=== PATIENT | female | born 1980 | race Caucasian/White ===

== ENCOUNTER 2019-03-15 05:35 | Emergency (ER) | payer OTHER ==
[~2019-03-15] VITALS: Ht 162.6 cm; Wt 68.0 kg
[~2019-03-15 05:35] MED LIST: LOESTRIN 24 FE1 EACH PO; NAPROSYN500 MG PO; NOHOMEMEDICATIONS; NORCO 5-325 TA1 EACH PO; ORTHO-CYCLEN1 EACH PO; PERCOCET 5-3251 EACH PO; VALIUM2 MG PO
[2019-03-15 06:18] LABS: ABSOLUTE NEUTROPHILS 4.9 thou/uL (1.4-8.2); BASOPHILS 0.7 % (0.0-2.0); EOSINOPHILS 1.4 % (0.0-3.0); HEMATOCRIT 40.9 % (37.0-47.0); HEMOGLOBIN 13.6 gm/dL (12.0-15.0); MCH 31.7 pg (26.0-34.0); MCHC 33.2 g/dL (28.0-37.0); MCV 95.6 fL (80.0-100.0); MONOCYTES 5.2 % (1.0-8.0); PLATELET COUNT 298 thou/uL (150-400); POLYS 75.7 % (36.0-66.0); RBC 4.28 mil/uL (4.20-5.00); RDW 14.2 % (10.5-14.5); WBC 6.4 thou/uL (4.0-11.0)
[2019-03-15 06:36] LABS: CALCIUM 9.5 mg/dL (8.5-10.1); CREATININE 0.9 mg/dL (0.6-1.0); POTASSIUM 3.2 mmol/L (3.5-5.1)
[2019-03-15 06:39] LABS: ALBUMIN 4.3 g/dL (3.4-5.0); TOTAL BILIRUBIN 0.5 mg/dL (<0.1-1.0); TOTAL PROTEIN 7.7 g/dL (6.4-8.2)
[2019-03-15] MEDS ORDERED: ONDANSETRON ODT8 MG PO (07:20)
[2019-03-15] MEDS ORDERED: PROMS25 WY RECTAL (07:20)
[2019-03-15] MEDS ORDERED: NORCO 5-325 TA1 EAC1 PO (08:10)
[2019-03-15] MEDS ORDERED: NORFLEX100 MG PO (08:10)
[2019-03-15 08:29] LABS: URINE BILIRUBIN NEGATIVE (Negative); URINE BLOOD 1+ (Negative); URINE CLARITY CLEAR; URINE COLOR YELLOW; URINE GLUCOSE-RANDOM* NEGATIVE (Negative); URINE KETONES 3+ (Negative); URINE NITRITE-REFLEX NEGATIVE (Negative); URINE PROTEIN (DIPSTICK) NEGATIVE (Negative); URINE SPECIFIC GRAVITY 1.015 (1.005-1.035); URINE UROBILINOGEN 0.2 E.U./dl (0.2-1.0)
[2019-03-15 08:32] LABS: URINE LEUKOCYTES-REFLEX 1+ (Negative)
[2019-03-15 08:40] LABS: URINE REDUCING SUBSTANCE NEGATIVE
[2019-03-15 08:51] VITALS: BP 158/93
[2019-03-15 09:08] LABS: SQUAMOUS 4-10 Moderate /LPF (0-3)
[2019-03-15 09:09] LABS: BACTERIA-REFLEX 1-9 Few /HPF (None Seen); CASTS None Seen /LPF (None Seen); CRYSTALS None Seen /LPF (None Seen); URINE RBC 3-10 Few /HPF (0-2); URINE WBC-REFLEX 0-5 Rare /HPF (0-5)
== END 2019-03-15 08:52 | disposition home or self-care (01) ==
LOC: ER 05:35
PROVIDERS: Emergency Medicine
DX: K85.90 Acute pancreatitis without necrosis or infection, unspecified (principal); R19.7 Diarrhea, unspecified; F17.210 Nicotine dependence, cigarettes, uncomplicated; Z90.49 Acquired absence of other specified parts of digestive tract; Z90.721 Acquired absence of ovaries, unilateral

== ENCOUNTER 2020-04-02 17:08 | Emergency (ER) | payer OTHER ==
[~2020-04-02] VITALS: Ht 162.6 cm; Wt 61.2 kg
[~2020-04-02 17:08] MED LIST changes: +NORCO 5-325 TA1 EAC1 PO; +NORFLEX100 MG PO; +ONDANSETRON ODT8 MG PO; +PROMS25 WY RECTAL
[2020-04-02] MEDS ORDERED: NOHOMEMEDICATIONS (17:28)
[2020-04-02] MEDS ORDERED: BACTRIM DS TAB1 EACH PO (19:06)
[2020-04-02] MEDS ORDERED: KEFLEX500 M1 PO (19:06)
[2020-04-02] MEDS ORDERED: NORCO 5-325 TA1 EAC2 PO (19:06)
[2020-04-02 19:07] VITALS: BP 101/45
== END 2020-04-02 19:07 | disposition home or self-care (01) ==
LOC: ER 17:08
DX: L02.31 Cutaneous abscess of buttock (principal); F17.210 Nicotine dependence, cigarettes, uncomplicated; Z90.49 Acquired absence of other specified parts of digestive tract